=== PATIENT | male | born 1960 | race Caucasian/White ===

== ENCOUNTER 2017-10-31 21:12 | Emergency (ER) | payer SELFPAY ==
[~2017-10-31] VITALS: Ht 177.8 cm; Wt 82.7 kg
[2017-10-31 21:29] VITALS: Ht 177.8 cm; Wt 82.7 kg
[2017-10-31 22:11] VITALS: BP 124/79
== END 2017-10-31 22:11 | disposition home or self-care (01) ==
LOC: ED 21:12
DX: S71.111D Laceration without foreign body, right thigh, subsequent encounter (principal); W45.0XXD Nail entering through skin, subsequent encounter
CPT/HCPCS: 90715